=== PATIENT | male | born 1955 | race Caucasian/White ===

== ENCOUNTER 2025-01-10 17:35 | Emergency (ER) | payer MEDICARE, OTHER ==
[2025-01-10 17:55] LABS: BASOPHILS ABSOLUTE AUTO 0.07 10^3/uL (0.00-0.50); BASOPHILS PERCENT AUTO 0.8 % (0-1); EOSINOPHILS ABSOLUTE AUTO 0.51 10^3/uL (0.00-1.50); EOSINOPHILS PERCENT AUTO 5.5 % (0-6); IMMATURE GRAN ABSOLUTE AUTO 0.05 10^3/uL (0.00-0.49); IMMATURE GRAN PERCENT AUTO 0.5 % (0.0-4.9); LYMPHOCYTES ABSOLUTE AUTO 0.66 10^3/uL (0.60-5.00); LYMPHOCYTES PERCENT AUTO 7.1 % (24-44); MONOCYTES ABSOLUTE AUTO 0.85 10^3/uL (0.00-1.50); MONOCYTES PERCENT AUTO 9.2 % (0-10); NEUTROPHILS ABSOLUTE AUTO 7.11 x10^3/uL (1.80-8.00); NEUTROPHILS PERCENT AUTO 76.9 % (41-71); PLATELET COUNT,PLT 299 10^3/uL (150-400); RED BLOOD CELL COUNT 3.44 x10^6/uL (4.50-6.00); WHITE BLOOD CELL COUNT,WBC 9.3 10^3/uL (4.0-11.0)
[2025-01-10] MEDS: Bumetanide 2.5 MG/10 ML MDV IVPUSH ONE (18:12)
[2025-01-10 18:16] LABS: ALANINE AMINOTRANSFERASE,ALT 24.0 U/L (12-78); ASPARTATE AMNIOTRANSFERASE,AST 26.0 U/L (15-37); BILIRUBIN TOTAL 1.0 mg/dL (0.0-1.0); BLOOD UREA NITROGEN,BUN 40.0 mg/dL (7-18); CARBON DIOXIDE,CO2 30.0 mmol/L (21-32); CHLORIDE,CL 96.0 mEq/L (98-106); CREATININE 2.0 mg/dL (0.7-1.3); EST CRCL DRUG DOSING (CG) 37.01 mL/min; GLUCOSE RANDOM 122.0 mg/dL (75-99); POTASSIUM,K 4.5 mEq/L (3.5-5.0); PRO B-TYPE NATRIUR PEPT,BNPPRO 378.0 pg/mL (0-1000); PROTEIN TOTAL,TP 7.1 g/dL (6.4-8.2); SODIUM,NA 136.0 mEq/L (136-145)
[2025-01-10 18:17] LABS: ESTIMATED GFR 36.0 mL/min (>=60)
[2025-01-11 07:49] LABS: APPEARANCE,URINE CLEAR (CLEAR); GLUCOSE,URINE 250 mg/dL (NEGATIVE); OCCULT BLOOD,URINE TRACE-INTACT (NEGATIVE)
[2025-01-11 08:08] LABS: SQUAMOUS EPITHELIAL CELLS,UR OCCASIONAL /HPF (NOT SEEN)
== END 2025-01-10 20:00 ==
LOC: CC.ED 17:35
DX: J96.21 Acute and chronic respiratory failure with hypoxia (principal); I95.89 Other hypotension
CPT/HCPCS: 36415; 71045; 80053; 81001; 83605; 83735; 83880; 84484; 85025; 85730; 87040; 87426-QW; 93005; 93010; 96361; 96374; 99291; 99291-25; A9270-GY; J1939; J7040